=== PATIENT | female | born 1990 | race Caucasian/White ===

== ENCOUNTER 2017-04-10 13:44 | Emergency (ER) | payer OTHER ==
[~2017-04-10] VITALS: Ht 152.4 cm; Wt 111.1 kg
--- NOTE | 2017-04-10 15:34 | ER.PDOC ---
General Chief Complaint: Extremities Stated Complaint: RIGHT FOOT INJURY Time seen by MD: 15:22 Source: patient History of Present Illness Onset: yesterday Where: home Severity: mild Context: fall Modifying Factors: pain on movement Allergies: Coded Allergies: Iodinated Contrast- Oral and IV Dye (Verified Allergy, Unknown, HIVES, ) Home Meds No Active Prescriptions or Reported Meds Past Medical History Surgical History: appendectomy, cholecystectomy LMP (females 10-50): 04/03/17 Social History Smoking: non-smoker Alcohol Use: rarely Drug Use: none Review of Systems All Other Systems: Reviewed and Negative Physical Exam General Appearance: Alert, No Apparent Distress Foot: tenderness 1 - TENDER 1 - TENDER Gait: antalgic gait Neuro: sensation nml, motor nml Vascular: no vascular compromise Tendons: tendon function nml Leg/Knee/Thigh: uninjured above ankle Skin: warm/dry Head/ENT: nml inspection, pharynx nml Neck/Back: nml inspection, non-tender Resp/CVS: no resp distress Abdomen: non-tender, no organomegaly Course Blood Pressure Systolic: 148 Blood Pressure Diastolic: 92 Blood Pressure Mean: 110 Departure Time of Disposition: 16:00 Disposition: 01 HOME, SELF-CARE Impression: Primary Impression: Right foot strain Condition: Stable Referrals: PCP,UNKNOWN (PCP) PRIMARY CARE PROVIDER Scripts No Active Prescriptions or Reported Meds Duration or Time Spent with Pa: 1 HR TERRENCE SHERWOOD MD Apr 10, 2017 15:34
--- NOTE | 2017-04-10 15:52 | DIREP ---
PROCEDURE:XRAY ANKLE MIN 3VWS-RT COMPARISON:None. INDICATIONS:FALL FINDINGS: BONES:Normal. JOINTS:Normal. SOFT TISSUES:Normal. OTHER:No additional findings. CONCLUSION:Normal examination. Dictated by: Joshua Leal III, MD on 04/10/2017 at 03:51 PM
--- NOTE | 2017-04-10 15:52 | DIREP ---
PROCEDURE:XRAY FOOT MIN 3 VWS-RT COMPARISON:None. INDICATIONS:FALL FINDINGS: BONES:Normal. JOINTS:Normal. SOFT TISSUES:Normal. OTHER:No additional findings. CONCLUSION:Normal examination. Dictated by: Joshua Leal III, MD on 04/10/2017 at 03:52 PM
[2017-04-10 16:36] VITALS: BP 148/92
== END 2017-04-10 16:20 | disposition home or self-care (01) ==
LOC: ER 13:44
DX: S96.911A Strain of unspecified muscle and tendon at ankle and foot level, right foot, initial encounter (principal); Z91.041 Radiographic dye allergy status; W19.XXXA Unspecified fall, initial encounter; Y93.89 Activity, other specified; Y92.098 Other place in other non-institutional residence as the place of occurrence of the external cause; Y99.8 Other external cause status
CPT/HCPCS: 99284; 73610-RT; 73630-RT

== ENCOUNTER 2017-12-09 13:30 | Emergency (ER) | payer OTHER ==
[~2017-12-09] VITALS: Ht 165.1 cm; Wt 97.5 kg
[2017-12-09 13:38] VITALS: BP 136/95
--- NOTE | 2017-12-09 13:38 | NUR ---
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
[2017-12-09] MEDS ORDERED: TORADOL IV STA (13:45)
[2017-12-09] MEDS ORDERED: TORADOL ONE (13:52)
[2017-12-09] MEDS ORDERED: NS 1000ML 1,000 ML ONE (13:52)
[2017-12-09 13:59] LABS: BASOPHIL % 0.2 % (0.0-0.2); EOSINOPHIL # 0.1 10^3/uL (0.0-0.2); HEMOGLOBIN 12.7 g/dL (12.0-15.0); LYMPHOCYTES # 1.3 10^3/uL (1.0-4.8); LYMPHOCYTES % 15.5 % (24.0-44.0); MEAN CELL HGB 27.2 pg (26-34); MEAN CELL HGB CONCENTRATION 32.7 g/dL (33-37); MEAN CORP VOLUME 83.1 fL (78-100); MEAN PLATELET VOLUME 10.8 fL (7.8-11.0); MONOCYTES # 0.5 10^3/uL (0.3-0.8); MONOCYTES % 5.8 % (5.0-12.0); NEUTROPHIL # 6.7 10^3/uL (1.8-7.7); NEUTROPHILS % 77.3 % (41.0-85.0); RED CELL DISTRIBUTION WIDTH 13.9 % (11.5-14.5); WHITE BLOOD CELL 8.7 10^3/uL (4.5-11.0)
[2017-12-09] MEDS ORDERED: NS 1000ML 1,000 ML IV ONE (14:00)
--- NOTE | 2017-12-09 14:01 | ER.PDOC ---
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, no radiation and does not change with movement Timing/Duration: 1-3 hours Severity/Quality: severe, cramping Radiation: no radiation Associated Symptoms: back pain Allergies: Coded Allergies: Iodinated Contrast- Oral and IV Dye (Verified Allergy, Unknown, HIVES, ) Home Meds No Active Prescriptions or Reported Meds Vital Signs First Vital Signs Date Time Temp Pulse Resp B/P (MAP) Pulse Ox O2 Delivery O2 Flow Rate FiO2 12/09/17 13:35 98.3 95 20 98.3 12/09/17 13:36 93 Room Air 12/09/17 13:38 136/95 (109) Last Vital Signs Date Time Temp Pulse Resp B/P (MAP) Pulse Ox O2 Delivery O2 Flow Rate FiO2 12/09/17 13:38 98.3 95 20 136/95 (109) 93 Room Air 98.3 Past Medical History Medical History: no pertinent history Surgical History: appendectomy, cholecystectomy Social History Smoking: non-smoker Alcohol Use: none Drug Use: none Constitutional: no symptoms reported EENTM: no symptoms reported Respiratory: no symptoms reported Cardiovascular: no symptoms reported Gastrointestinal: see HPI Genitourinary: see HPI Musculoskeletal: no symptoms reported Skin: no symptoms reported Psychiatric/Neurological: no symptoms reported Endocrine: no symptoms reported Hematologic/Lymphatic: no symptoms reported Physical Exam General Appearance: No Apparent Distress, WD/WN HEENT: PERRL/EOMI, Normal ENT Inspection, TMs Normal, Pharynx Normal Neck: Non-Tender, Full Range of Motion, Supple, Normal Inspection Respiratory: chest non-tender, lungs clear, normal breath sounds, no respiratory distress, no accessory muscle use Cardiovascular: Normal Peripheral Pulses, Regular Rate, Rhythm, No Edema, No Gallop, No JVD, No Murmur Gastrointestinal: Normal Bowel Sounds, Non Tender, Soft Back: CVA Tenderness (L) Extremities: Normal Range of Motion, Non-Tender, Normal Inspection, No Pedal Edema, No Calf Tenderness, Normal Capillary Refill, Pelvis Stable 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, No Motor/Sensory Deficits, Alert, Normal Mood/Affect, Oriented x 3 Skin: Normal Color, Warm/Dry Lymphatic: No Adenopathy Results/Orders Results/Orders Administered Medications Medications (Trade) Dose Ordered Sig/Saira Route PRN Reason Start Time Stop Time Status Last Admin Dose Admin Sodium Chloride 1,000 ml @ 1,000 mls/hr Q1H ONCE IV 12/09/17 14:00 12/09/17 14:59 12/09/17 13:57 Course Sepsis Screening Results: Posi: POSITIVE SEPSIS RISK Vitals & review Data Vital Sign - Last 24 Hours 12/09/17 12/09/17 12/09/17 13:35 13:36 13:38 Temp 98.3 98.3 98.3 98.3 98.3 98.3 Pulse 95 95 95 Resp 20 20 20 B/P (MAP) 136/95 (109) Pulse Ox 93 93 O2 Delivery Room Air Room Air Departure Time of Disposition: 15:23 Disposition: 01 HOME, SELF-CARE Impression: Primary Impression: UTI (urinary tract infection) Additional Impression: Kidney calculi Condition: Stable Patient Instructions: Kidney Stones, [id number] Referrals: PCP,UNKNOWN (PCP) PRIMARY CARE PROVIDER Scripts No Active Prescriptions or Reported Meds Duration or Time Spent with Pa: 20 Problem Qualifiers PARUL GALLEGOS MD Dec 09, 2017 14:01
[2017-12-09 14:18] LABS: CARBON DIOXIDE 23.8 mmol/L (20.0-32)
--- NOTE | 2017-12-09 14:18 | NUR ---
CT PT TAKEN TO CT
--- NOTE | 2017-12-09 14:48 | DIREP ---
PROCEDURE:CT ABDOMEN/PELVIS W/O CONTRAST COMPARISON:None. INDICATIONS:Flank pain TECHNIQUE:Axial images were created through the abdomen and pelvis without intravenous contrast material. No oral contrast was administered. Sagittal and coronal reconstructions were performed from source images. FINDINGS: LUNG BASES:Normal. No visible pulmonary or pleural disease. LIVER:Normal. No significant liver lesions are identified. BILIARY:The gallbladder is surgically absent. There is no biliary ductal dilatation. PANCREAS:Normal. No lesion, fluid collection, ductal dilatation, or atrophy. SPLEEN:Normal. No enlargement or focal lesion. ADRENALS:Normal. No mass or enlargement. URINARY TRACT:Normal, except for small nonobstructive bilateral renal calculi. No focal lesions or hydronephrosis. AORTA/VASCULAR:Normal. No aneurysm. RETROPERITONEUM:Normal. No mass or adenopathy. BOWEL/MESENTERY:Normal. There is no intestinal obstruction, free fluid, free air or mesenteric inflammatory changes. ABDOMINAL WALL:Normal. No mass or hernia. PELVIC ORGANS:Normal. No visible mass. Pelvic organs appropriate for patient age. BONES:There are degenerative changes of the spine at L5-S1. OTHER:Suggestion of previous appendectomy. CONCLUSION:Postsurgical changes. Nonobstructive bilateral renal calculi. No other significant abnormalities are seen. Dictated by: Steven George M.D. on 12/09/2017 at 02:44 PM
[2017-12-09 15:08] LABS: BILIRUBIN,URINE NEGATIVE (NEGATIVE); UROBILINOGEN,URINE NORMAL (NEGATIVE)
[2017-12-09 15:10] LABS: APPEARANCE,URINE SLIGHTLY CLOUDY (CLEAR); UA COLOR AMBER (YELLOW)
[2017-12-09 15:35] VITALS: BP 103/59
[2017-12-09 15:45] VITALS: BP 103/59
== END 2017-12-09 15:46 | disposition home or self-care (01) ==
LOC: ER 13:30 → EDBD 13:30 → ER 15:46
DX: N39.0 Urinary tract infection, site not specified (principal); N20.0 Calculus of kidney; R79.1 Abnormal coagulation profile; Z90.49 Acquired absence of other specified parts of digestive tract; Z91.041 Radiographic dye allergy status
CPT/HCPCS: 36415; 74176; 80053; 81000; 82150; 83690; 84703; 85025; 85610; 85730; 87086; 96374; 99285; J1885; J7030

== ENCOUNTER 2018-10-02 07:35 | Emergency (ER) | payer OTHER ==
[~2018-10-02] VITALS: Ht 165.1 cm; Wt 117.9 kg
--- NOTE | 2018-10-02 07:35 | NUR ---
ARRIVAL PT ARRIVED VIA STRETCHER BY [facility] TO ER 4 C/O LEFT FLANK PAIN ONSET 0600. PT STATES HISTORY OF KIDNEY STONES. SEE EMS REPORT. EDP NOTIFIED OF PT ARRIVAL.
[2018-10-02 07:55] VITALS: BP 102/49
--- NOTE | 2018-10-02 08:07 | ER.PDOC ---
General Chief Complaint: Flank Pain Stated Complaint: FLANK PAIN Time seen by MD: 08:00 Source: patient Exam Limitations: no limitations History of Present Illness Timing/Duration: 4-6 hours Severity/Quality: severe, cramping Radiation: groin Associated Symptoms: back pain, nausea/vomiting Exacerbated by: nothing Relieved By: nothing Allergies: Coded Allergies: Iodinated Contrast- Oral and IV Dye (Verified Allergy, Unknown, HIVES, 04/10/17) Home Meds No Active Prescriptions or Reported Meds Vital Signs First Vital Signs Date Time Temp Pulse Resp B/P (MAP) Pulse Ox O2 Delivery O2 Flow Rate FiO2 10/02/18 07:35 97.6 68 17 98 Room Air 97.6 10/02/18 07:55 102/49 (66) Last Vital Signs Date Time Temp Pulse Resp B/P (MAP) Pulse Ox O2 Delivery O2 Flow Rate FiO2 10/02/18 07:55 97.6 68 17 102/49 (66) 98 Room Air 97.6 Past Medical History Medical History: no pertinent history Surgical History: appendectomy, cholecystectomy LMP (females 10-50): this week Social History Smoking: non-smoker Alcohol Use: none Drug Use: none Reviewed Nursing Reviewed: Vital Signs, Abn. Noted All Other Systems: Reviewed and Negative Physical Exam General Appearance: No Apparent Distress, WD/WN HEENT: PERRL/EOMI, Normal ENT Inspection, TMs Normal, Pharynx Normal Neck: Non-Tender, Full Range of Motion, Supple, Normal Inspection Respiratory: chest non-tender, lungs clear, normal breath sounds, no respiratory distress, no accessory muscle use Cardiovascular: Normal Peripheral Pulses, Regular Rate, Rhythm, No Edema, No Gallop, No JVD, No Murmur Gastrointestinal: Tenderness (l flank) Back: Normal Inspection, No Vertebral Tenderness, CVA Tenderness (L) Extremities: Normal Range of Motion, Non-Tender, Normal Inspection, No Pedal Edema, No Calf Tenderness, Normal Capillary Refill, Pelvis Stable 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 (10/02/18 07:47) Hcg Qualitative Serum (10/02/18 07:47) Urinalysis (10/02/18 07:47) Ct Abd/Pelvis Wo Iv Contrast (10/02/18 07:47) Vital Signs Date Time Temp Pulse Resp B/P (MAP) Pulse Ox O2 Delivery O2 Flow Rate FiO2 10/02/18 07:55 97.6 68 17 102/49 (66) 98 Room Air 97.6 10/02/18 07:35 97.6 68 17 97.6 10/02/18 07:35 97.6 68 17 98 Room Air 97.6 Course Sepsis Screening Results: Posi: POSITIVE SEPSIS RISK Duration or Total Time Spent w: 20 Vitals & review Data Vital Sign - Last 24 Hours 10/02/18 10/02/18 10/02/18 07:35 07:35 07:55 Temp 97.6 97.6 97.6 97.6 97.6 97.6 Pulse 68 68 68 Resp 17 17 17 B/P (MAP) 102/49 (66) Pulse Ox 98 98 O2 Delivery Room Air Room Air Sepsis Infection Criteria Pres: None O2 Sat by Pulse Oximetry: 98 Departure Time of Disposition: 09:33 Disposition: 01 HOME, SELF-CARE Impression: Primary Impression: Thoracic radiculopathy Condition: Improved Referrals: PCP,UNKNOWN (PCP) PRIMARY CARE PROVIDER Scripts No Active Prescriptions or Reported Meds Duration or Time Spent with Pa: 1 hr TERRENCE SHERWOOD MD Oct 02, 2018 08:07
[2018-10-02 08:15] LABS: BASOPHIL % 0.3 % (0.0-0.2); EOSINOPHIL # 0.1 10^3/uL (0.0-0.2); EOSINOPHIL % 1.8 % (0.0-5.0); HEMOGLOBIN 12.1 g/dL (12.0-15.0); LYMPHOCYTES % 26.8 % (24.0-44.0); MEAN CELL HGB 27.3 pg (26-34); MEAN CELL HGB CONCENTRATION 32.8 g/dL (33-37); MEAN CORP VOLUME 83.3 fL (78-100); MEAN PLATELET VOLUME 10.9 fL (7.8-11.0); MONOCYTES # 0.5 10^3/uL (0.3-0.8); MONOCYTES % 6.6 % (5.0-12.0); NEUTROPHIL # 4.9 10^3/uL (1.8-7.7); NEUTROPHILS % 64.4 % (41.0-85.0); RED CELL DISTRIBUTION WIDTH 13.8 % (11.5-14.5); WHITE BLOOD CELL 7.6 10^3/uL (4.5-11.0)
--- NOTE | 2018-10-02 08:19 | NUR ---
CT PT TO CT VIA WHEELCHAIR AT THIS TIME.
[2018-10-02 08:30] LABS: HCG QUALITATIVE -RESTRICTLAB NEGATIVE (NEGATIVE)
[2018-10-02 08:35] LABS: CALCIUM 9.1 mg/dL (8.4-10.5)
[2018-10-02 08:55] VITALS: BP 107/58
--- NOTE | 2018-10-02 09:45 | DIREP ---
PROCEDURE:CT ABD/PELVIS W/O TECHNIQUE:CT of the abdomen pelvis without contrast with multiplanar reformats. COMPARISON:[facility], CT, CT ABD/PELVIS W/O, 12/09/2017, 02:23 PM. INDICATIONS:L FLANK PAIN, H/O URETERIC CALCULUS FINDINGS: LUNG BASES:Normal. No visible pulmonary or pleural disease. LIVER:Normal. No significant liver lesions are identified. BILIARY:The gallbladder is surgically absent. There is no biliary ductal dilatation. PANCREAS:Normal. No lesion, fluid collection, ductal dilatation, or atrophy. SPLEEN:Normal. No enlargement or focal lesion. ADRENALS:Normal. No mass or enlargement. URINARY TRACT:Bilateral nonobstructing renal stones. No hydronephrosis to suggest obstructing renal stone however following the distal ureters is difficult. AORTA/VASCULAR:Normal. No aneurysm. RETROPERITONEUM:Normal. No mass or adenopathy. BOWEL/MESENTERY:Normal. There is no intestinal obstruction, free fluid, free air or mesenteric inflammatory changes. Post appendectomy. ABDOMINAL WALL:Normal. No mass or hernia. PELVIC ORGANS:Normal. No visible mass. Pelvic organs appropriate for patient age. BONES:There are degenerative changes of the spine at L5-S1. OTHER:None CONCLUSION: 1. No CT explanation of the patient's left flank pain. Overall stable CT from the prior. Bilateral nonobstructing stones without CT evidence of obstructing renal stone. 2. Post cholecystectomy and appendectomy. 3. Other stable findings as above. Dictated by: Isaias Em MD on 10/02/2018 at 09:33 AM
[2018-10-02 09:58] VITALS: BP 115/64
[2018-10-02 10:26] VITALS: BP 102/49
== END 2018-10-02 09:58 | disposition home or self-care (01) ==
LOC: EDBD 07:35 → ER 07:35
DX: M54.14 Radiculopathy, thoracic region (principal); Z90.49 Acquired absence of other specified parts of digestive tract
CPT/HCPCS: 36415; 74176; 80053; 82150; 83690; 84703; 85025; 85610; 85730; 86677; 99285

== ENCOUNTER 2018-11-23 13:13 | Emergency (ER) | payer OTHER ==
[~2018-11-23] VITALS: Ht 165.1 cm; Wt 113.4 kg
[2018-11-23 13:32] VITALS: BP 133/81
[2018-11-23] MEDS ORDERED: ZOFRAN ODT SL STA ×2 (13:38→14:56)
[2018-11-23] MEDS ORDERED: PEPCID PO STA (13:38)
--- NOTE | 2018-11-23 13:41 | ER.PDOC ---
General Chief Complaint: Dizziness Stated Complaint: LOWER BACK PAIN,DIZZY,N - 3 WEEKS Time seen by MD: 13:33 Source: patient Exam Limitations: no limitations History of Present Illness Severity/Quality: mild Associated Symptoms (vomiting): mild vomiting Prior symptoms/Treatment: Similar symptoms previous Allergies: Coded Allergies: Iodinated Contrast- Oral and IV Dye (Verified Allergy, Unknown, HIVES, 04/10/17) Home Meds No Active Prescriptions or Reported Meds Vital Signs First Vital Signs Date Time Temp Pulse Resp B/P (MAP) Pulse Ox O2 Delivery O2 Flow Rate FiO2 11/23/18 13:21 97.8 64 16 11/23/18 13:21 98 Room Air 11/23/18 13:32 133/81 (98) Last Vital Signs Date Time Temp Pulse Resp B/P (MAP) Pulse Ox O2 Delivery O2 Flow Rate FiO2 11/23/18 13:32 97.8 64 16 133/81 (98) 98 Room Air Past Medical History Medical History: no pertinent history, other Surgical History: appendectomy, cholecystectomy LMP (females 10-50): last week Social History Smoking: non-smoker Alcohol Use: none Drug Use: none Reviewed Nursing Reviewed: Vital Signs, Abn. Noted All Other Systems: Reviewed and Negative Physical Exam General Appearance: No Apparent Distress, WD/WN HEENT: PERRL/EOMI, Normal ENT Inspection, TMs Normal, Pharynx Normal Neck: Non-Tender, Full Range of Motion, Supple, Normal Inspection Respiratory: chest non-tender, lungs clear, normal breath sounds, no respiratory distress, no accessory muscle use Cardiovascular: Normal Peripheral Pulses, Regular Rate, Rhythm, No Edema, No Gallop, No JVD, No Murmur Gastrointestinal: Tenderness Back: Normal Inspection, No CVA Tenderness, No Vertebral Tenderness Extremities: Normal Range of Motion, Non-Tender, Normal Inspection, No Pedal Edema, No Calf Tenderness, Normal Capillary Refill, Pelvis Stable 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 (11/23/18 13:36) Hcg Qualitative Serum (11/23/18 13:36) Urinalysis (11/23/18 13:36) Ondansetron (Zofran Odt) (11/23/18 13:38) Famotidine (Pepcid) (11/23/18 13:38) Ondansetron (Zofran Odt) (11/23/18 13:56) Famotidine (Pepcid) (11/23/18 13:57) Lidocaine Hcl (Lidocaine 2% Vial) (11/23/18 14:14) Meclizine Hcl (Antivert) (11/23/18 14:23) Vital Signs Date Time Temp Pulse Resp B/P (MAP) Pulse Ox O2 Delivery O2 Flow Rate FiO2 11/23/18 13:32 97.8 64 16 133/81 (98) 98 Room Air 11/23/18 13:21 97.8 64 17 98 Room Air 11/23/18 13:21 97.8 64 16 Administered Medications Medications (Trade) Dose Ordered Sig/Saira Route PRN Reason Start Time Stop Time Status Last Admin Dose Admin Famotidine (Pepcid) 20 mg STAT STAT PO 11/23/18 13:38 11/23/18 13:39 DC 11/23/18 14:01 20 MG Ondansetron HCl (Zofran Odt) 4 mg STAT STAT SL 11/23/18 13:38 11/23/18 13:39 DC 11/23/18 14:01 4 MG Laboratory Tests Test 11/23/18 13:50 11/23/18 13:51 Urine Collection Type VOID Urine Color YELLOW (YELLOW) Urine Appearance CLEAR (CLEAR) Urine Bilirubin NEGATIVE MG/DL (NEGATIVE) Urine Ketones NEGATIVE (NEGATIVE) Urine Specific [place] 1.020 (1.005-1.035) Urine pH 5 (5.0-6.0) Urine Protein NEGATIVE (NEGATIVE) Urine Urobilinogen NORMAL (NEGATIVE) Urine Nitrate NEGATIVE (NEGATIVE) Urine Leukocyte Esterase NEGATIVE (NEGATIVE) Urine Blood NEGATIVE (NEGATIVE) Urine Glucose NORMAL (NEGATIVE) White Blood Count 8.5 10^3/uL (4.5-11.0) Red Blood Count 4.63 10^6/uL (4.00-5.20) Hemoglobin 12.5 g/dL (12.0-15.0) Hematocrit 38.7 % (36.0-46.0) Mean Corpuscular Volume 83.6 fL (78-100) Mean Corpuscular Hemoglobin 27.0 pg (26-34) Mean Corpuscular Hemoglobin Concent 32.3 g/dL (33-37) L Red Cell Distribution Width 14.3 % (11.5-14.5) Platelet Count 286 10^3/uL (150-400) Mean Platelet Volume 10.8 fL (7.8-11.0) Neutrophils (%) (Auto) 73.2 % (41.0-85.0) Lymphocytes (%) (Auto) 19.6 % (24.0-44.0) L Monocytes (%) (Auto) 6.1 % (5.0-12.0) Neutrophils # (Auto) 6.2 10^3/uL (1.8-7.7) Lymphocytes # (Auto) 1.7 10^3/uL (1.0-4.8) Monocytes # (Auto) 0.5 10^3/uL (0.3-0.8) Absolute Immature Granulocyte (auto 0.01 10^3 u/L (0-2) Immature Granulocytes % 0.10 % (0.00-0.50) Eosinophils % 0.9 % (0.0-5.0) Basophils % 0.1 % (0.0-0.2) Basophils # 0.0 10^3/uL (0.0-0.1) Eosinophil Count 0.1 10^3/uL (0.0-0.2) Sodium Level 143 mmol/L (132-145) Potassium Level 3.7 mmol/L (3.6-5.2) Chloride Level 107.0 mmol/L (96-109) Carbon Dioxide Level 25.2 mmol/L (20.0-32) Anion Gap 14.5 Blood Urea Nitrogen 9 mg/dL (7-18) Creatinine 0.73 mg/dL (0.59-1.40) Estimated GFR () 115.7 (>/=60) BUN/Creatinine Ratio 12.0 Glucose Level 81 mg/dL (70-110) Calcium Level 9.6 mg/dL (8.4-10.5) Total Bilirubin 0.3 mg/dL (0.2-1.0) Aspartate Amino Transferase (AST) 21 U/L (0-35) Alanine Aminotransferase (ALT) 24 U/L (12-78) Alkaline Phosphatase 85 U/L (50-136) Total Protein 7.5 g/dL (6.4-8.2) Albumin 4.0 g/dL (3.4-5.0) Globulin 3.5 Amylase Level 52 U/L (25-115) Lipase 181 U/L (114-286) Serum HCG, Qualitative NEGATIVE (NEGATIVE) Helicobacter pylori Screen NEGATIVE (NEGATIVE) Departure Time of Disposition: 15:00 Disposition: 01 HOME, SELF-CARE Impression: Primary Impression: Gastritis Condition: Improved Referrals: PCP,UNKNOWN (PCP) PRIMARY CARE PROVIDER Scripts No Active Prescriptions or Reported Meds Duration or Time Spent with Pa: 20 M TERRENCE SHERWOOD MD Nov 23, 2018 13:41
[2018-11-23] MEDS ORDERED: ZOFRAN ODT ONE ×2 (13:56→15:03)
[2018-11-23] MEDS ORDERED: PEPCID ONE (13:57)
[2018-11-23 13:59] LABS: BASOPHIL % 0.1 % (0.0-0.2); EOSINOPHIL # 0.1 10^3/uL (0.0-0.2); EOSINOPHIL % 0.9 % (0.0-5.0); HEMOGLOBIN 12.5 g/dL (12.0-15.0); LYMPHOCYTES # 1.7 10^3/uL (1.0-4.8); LYMPHOCYTES % 19.6 % (24.0-44.0); MEAN CELL HGB CONCENTRATION 32.3 g/dL (33-37); MEAN CORP VOLUME 83.6 fL (78-100); MEAN PLATELET VOLUME 10.8 fL (7.8-11.0); MONOCYTES # 0.5 10^3/uL (0.3-0.8); MONOCYTES % 6.1 % (5.0-12.0); NEUTROPHIL # 6.2 10^3/uL (1.8-7.7); NEUTROPHILS % 73.2 % (41.0-85.0); RED CELL DISTRIBUTION WIDTH 14.3 % (11.5-14.5); WHITE BLOOD CELL 8.5 10^3/uL (4.5-11.0)
[2018-11-23 14:03] LABS: BILIRUBIN,URINE NEGATIVE (NEGATIVE); UROBILINOGEN,URINE NORMAL (NEGATIVE)
[2018-11-23 14:07] LABS: APPEARANCE,URINE CLEAR (CLEAR); UA COLOR YELLOW (YELLOW)
[2018-11-23 14:12] LABS: HCG QUALITATIVE -RESTRICTLAB NEGATIVE (NEGATIVE)
[2018-11-23] MEDS ORDERED: LIDOCAINE 2% VIAL XX STA (14:14)
[2018-11-23] MEDS ORDERED: ANTIVERT PO STA (14:23)
[2018-11-23 14:24] LABS: CALCIUM 9.6 mg/dL (8.4-10.5); CARBON DIOXIDE 25.2 mmol/L (20.0-32)
[2018-11-23 15:25] VITALS: BP 109/75
[2018-11-23 15:32] VITALS: BP 133/81
== END 2018-11-23 15:25 | disposition home or self-care (01) ==
LOC: ER 13:13
DX: K29.70 Gastritis, unspecified, without bleeding (principal); R42 Dizziness and giddiness; M54.5 Low back pain; Z88.8 Allergy status to other drugs, medicaments and biological substances; Z90.49 Acquired absence of other specified parts of digestive tract
CPT/HCPCS: 36415; 80053; 81002; 82150; 83690; 84703; 85025; 85610; 85730; 86677; 99284; Q0162 ×2